=== PATIENT | female | born 1965 | race Caucasian/White ===

== ENCOUNTER → 2017-04-08 | Outpatient (CLI) | payer BC ==
[~2017-04-08] MED LIST: BUPR-79 PO; CALCTAB5 PO; DASA70TA PO; FERR1TAB13 PO; HYDR2TAB48 PO; PANT40TA PO; RANI300T2 PO
--- NOTE | 2017-04-08 15:06 | MAMMOGRAPHY REPORT ---
BILATERAL DIGITAL SCREENING MAMMOGRAM TOMOSYNTHESIS WITH CAD: 04/08/2017 CLINICAL HISTORY: Asymptomatic. Personal history of breast cancer. TECHNIQUE: Breast tomosynthesis in addition to standard 2D mammography was performed. Current study was also evaluated with a Computer Aided Detection (CAD) system. COMPARISON: Comparison is made to exams dated: 03/27/2015 mammogram, 04/07/2016 mammogram, 02/22/2014 mammogram, 02/21/2013 mammogram, 02/21/2012 mammogram, and 02/18/2011 ultrasound - [facility]. BREAST COMPOSITION: The tissue of both breasts is heterogeneously dense, which may obscure small ma sses. FINDINGS: No suspicious masses, calcifications, or areas of architectural distortion are noted in e ither breast. There has been no significant interval change compared to prior exams. There are stab le postoperative changes in the left breast. Scattered bilateral benign-appearing calcifications ar e not significantly changed. IMPRESSION: ACR BI-RADS CATEGORY 2: BENIGN There is no mammographic evidence of malignancy. A 1 year screening mammogram is recommended. The p atient will receive written notification of the results. Approximately 10% of breast cancers are not detected with mammography. A negative mammographic repor t should not delay biopsy if a clinically suggestive mass is present. Ava Funez M.D. /:04/08/2017 15:00:18 Night Coordinator: Gilda DICKENS(R)(Chiqui), [facility] letter sent: Normal 1/2 BI-RADS Code: ACR BI-RADS Category 2: Benign
== END | disposition home or self-care (01) ==
LOC: C.MAMM 13:14
PROVIDERS: ATTEND Obstetrics & Gynecology
DX: Z12.31 Encounter for screening mammogram for malignant neoplasm of breast (principal); Z85.3 Personal history of malignant neoplasm of breast

== ENCOUNTER → 2017-06-10 | Outpatient (CLI) | payer BC | END | disposition home or self-care (01) | LOC: C.PAPS 11:44 | PROVIDERS: ATTEND Obstetrics & Gynecology | DX: Z01.419 Encounter for gynecological examination (general) (routine) without abnormal findings (principal) ==

== ENCOUNTER → 2017-11-14 | Outpatient (CLI) | payer BC ==
--- NOTE | 2017-11-14 17:57 | DIAGNOSTIC IMAGING REPORT ---
R SHOULDER MIN 2 VIEWS ROUTINE CLINICAL HISTORY: 52 years-old Female presenting with M25.511 Right shoulder [id number]. TECHNIQUE: Internal rotation, external rotation, Grashey views of the right shoulder were obtained. COMPARISON: None. FINDINGS: Calcification along the greater tuberosity may suggest calcific tendinitis. Glenohumeral and acromioclavicular joints congruent. No advanced degenerative change. No acute fracture or malalignment. Visualized portion of the right hemithorax normal. IMPRESSION: 1. No acute osseous injury of the right shoulder. 2. Possible calcific tendinitis of the rotator cuff. Electronically signed by: Yobany Torres M.D. 11/14/2017 5:56 PM Dictated Date/Time: 11/14/2017 5:55 PM
== END | disposition home or self-care (01) ==
LOC: C.RAD1850 16:28
PROVIDERS: ATTEND Nurse Practitioner Adult Health
DX: M25.511 Pain in right shoulder (principal); R93.7 Abnormal findings on diagnostic imaging of other parts of musculoskeletal system

== ENCOUNTER → 2018-04-10 | Outpatient (CLI) | payer OTHER ==
--- NOTE | 2018-04-11 15:04 | MAMMOGRAPHY REPORT ---
BILATERAL DIGITAL SCREENING MAMMOGRAM TOMOSYNTHESIS WITH CAD: 04/10/2018 CLINICAL HISTORY: Routine screening. Patient has no complaints. TECHNIQUE: Breast tomosynthesis in addition to standard 2D mammography was performed. Current study was also evaluated with a Computer Aided Detection (CAD) system. COMPARISON: Comparison is made to exams dated: 04/08/2017 mammogram, 04/07/2016 mammogram, 03/27/2015 m ammogram, 02/22/2014 mammogram, 02/21/2013 mammogram, and 02/21/2012 mammogram - [facility]. BREAST COMPOSITION: The tissue of both breasts is heterogeneously dense, which may obscure small mas ses. FINDINGS: A linear scar marker overlies the superior left breast. There is asymmetry of the size of the breasts, right greater than left. There is a stable metallic biopsy marker clip in the superior posterior left breast on the MLO view. Fluctuating nodularity in the right breast and diffuse benign -appearing punctate microcalcifications in the right breast. No new suspicious mass, architectural d istortion or cluster of microcalcifications is seen. IMPRESSION: ACR BI-RADS CATEGORY 1: NEGATIVE There is no mammographic evidence of malignancy. A 1 year screening mammogram is recommended. The pa tient will receive written notification of the results. Approximately 10% of breast cancers are not detected with mammography. A negative mammographic report should not delay biopsy if a clinically suggestive mass is present. Haley Guy M.D. ay/:04/10/2018 15:28:20 Baker Apprentice: Kylie DICKENS(Shiraz)(Chiqui)(LENNY), [facility] letter sent: Normal 1/2 BI-RADS Code: ACR BI-RADS Category 1: Negative
== END | disposition home or self-care (01) ==
LOC: C.MAMM 13:14
PROVIDERS: ATTEND Obstetrics & Gynecology
DX: Z12.31 Encounter for screening mammogram for malignant neoplasm of breast (principal); Z85.3 Personal history of malignant neoplasm of breast